=== PATIENT | female | born 1950 | race Caucasian/White ===

== ENCOUNTER 2023-12-24 09:11 | Emergency (ER) | payer MEDICARE ==
[~2023-12-24] VITALS: Ht 167.6 cm; Wt 61.7 kg
[2023-12-24] MEDS ORDERED: ACET1TAB23 PO (10:03)
[2023-12-24 10:25] VITALS: BP 126/77; TEMP 208.8; O2SAT 98
== END 2023-12-24 10:27 | disposition home or self-care (01) ==
LOC: ER 09:11
DX: S62.616A Displaced fracture of proximal phalanx of right little finger, initial encounter for closed fracture (principal); E78.5 Hyperlipidemia, unspecified; E11.9 Type 2 diabetes mellitus without complications; X58.XXXA Exposure to other specified factors, initial encounter; Y93.89 Activity, other specified; Y92.89 Other specified places as the place of occurrence of the external cause; Y99.8 Other external cause status
CPT/HCPCS: 73140; A4606; A4663